=== PATIENT | male | born 1980 | race Caucasian/White ===

== ENCOUNTER → 2020-06-18 | Outpatient (CLI) | payer OTHER ==
--- NOTE | 2020-06-18 08:12 | REP ---
INDICATION: ABN RESULTS TO LIVER FUNCTION STUDIES COMPARISON: None. TECHNIQUE: Real time de dios scale ultrasound examination using curved array transducer. FINDINGS: Liver is hyperechoic suggesting fatty infiltration and mildly enlarged measuring 21 cm in craniocaudal length. No focal hepatic lesion identified. Pancreas is incompletely evaluated due to interposed bowel gas but without obvious abnormality. The gallbladder is normal and without gallstones, wall thickening, or pericholecystic fluid. No biliary ductal dilatation is appreciated and the common bile duct measures 5.0 mm diameter. Right kidney is normal in reniform shape without hydronephrosis and measures 11.7 x 5.8 x 5.3 cm. No ascites in the visualized right upper quadrant. IMPRESSION: Hepatomegaly and hepatosteatosis. <Electronically signed by Bijan Vences > 06/18/20 0413
== END ==
LOC: M RAD 06:45
PROVIDERS: ATTEND Nurse Practitioner Family
DX: R94.5 Abnormal results of liver function studies (principal)

== ENCOUNTER 2021-01-12 20:35 | Inpatient (IN) | payer OTHER ==
[~2021-01-12] VITALS: Ht 177.8 cm; Wt 106.9 kg
[2021-01-12] MEDS: LEVEMIR (INSULIN DETEMIR) 1 UNITS/0.01ML SC SCH (01:15)
[2021-01-12] MEDS ORDERED: CALC600C3 PO (20:59)
[2021-01-12] MEDS ORDERED: SUMA6KIT (20:59)
[2021-01-12] MEDS ORDERED: LISI10TA22 PO (20:59)
[2021-01-12] MEDS ORDERED: PRAZ2CAP PO (20:59)
[2021-01-12] MEDS ORDERED: PROP60TA18 PO (20:59)
[2021-01-12] MEDS ORDERED: LISI10TA15 PO (20:59)
[2021-01-12] MEDS ORDERED: PARO40TA3 PO (20:59)
[2021-01-12] MEDS ORDERED: ARIP1TAB6 PO (20:59)
[2021-01-12] MEDS ORDERED: FISH1000 PO (20:59)
[2021-01-12] MEDS ORDERED: OMEP10CASR PO (20:59)
[2021-01-12 21:27] LABS: VENOUS BASE EXCESS 0.4 (-2.0-2.0); VENOUS HCO3 26.7 MEQ/L (23.0-27.0); VENOUS PARTIAL PRESSURE O2 31.5 mmHg (30.0-50.0); VENOUS PH 7.354 UNITS (7.330-7.430); VENOUS STANDARD HCO3 23.8 MEQ/L; VENOUS TOTAL CO2 28.2 MEQ/L (24.0-28.0)
[2021-01-12 21:35] LABS: BASO # 0.1 10^3/uL (0.0-0.2); BASO % 0.8 % (0.0-1.0); EOS # 0.2 10^3/uL (0.0-0.5); EOS % 2.3 % (0.0-3.0); HEMATOCRIT 43.8 % (42.0-52.0); HEMOGLOBIN 15.1 g/dl (13.5-17.5); LYMPH # 3.6 10^3/uL (1.5-5.0); LYMPH % 46.2 % (24.0-44.0); MEAN CORPUSCULAR HEMOGLOBIN 29.3 pg (27.0-33.0); MEAN CORPUSCULAR HGB CONC 34.5 g/dl (32.0-36.5); MONO # 0.4 10^3/uL (0.0-0.8); MONO % 5.6 % (2.0-8.0); NEUTROPHILS # 3.4 10^3/uL (1.5-8.5); NEUTROPHILS % 44.4 % (36.0-66.0); PLATELET COUNT, AUTOMATED 218 10^3/uL (150-450); RED BLOOD COUNT 5.15 10^6/uL (4.30-6.10); WHITE BLOOD COUNT 7.7 10^3/uL (4.0-10.0)
[2021-01-12 21:48] LABS: HEMOGLOBIN A1c 10.7 %
[2021-01-12 22:04] LABS: OSMOLALITY SERUM 301 MOSM/KG (275-295)
[2021-01-12 22:10] LABS: ACETONE/KETONE 1.08 MG/DL (<2.81); ALT/SGPT 229 U/L (12-78); BILIRUBIN,DIRECT 0.4 MG/DL (0.0-0.2); BILIRUBIN,TOTAL 1.9 MG/DL (0.2-1.0); BLOOD UREA NITROGEN 13 MG/DL (7-18); CALCIUM LEVEL 9.5 MG/DL (8.5-10.1); CARBON DIOXIDE LEVEL 28 MEQ/L (21-32); CHLORIDE LEVEL 99 MEQ/L (98-107); GLOMERULAR FILTRATION RATE > 60.0 (>60); GLUCOSE, FASTING 430 MG/DL (70-100); LIPASE 293 U/L (73-393); POTASSIUM SERUM 4.1 MEQ/L (3.5-5.1); SODIUM LEVEL 132 MEQ/L (136-145); TOTAL PROTEIN 7.7 GM/DL (6.4-8.2)
[2021-01-12] MEDS ORDERED: HumuLIN R (REGULAR) INSULIN (NovoLIN R) **100U/ML** PER UNIT IV ONE (23:20)
[2021-01-12 23:24] LABS: RSV AMPLIFICATION NEGATIVE (NEGATIVE)
--- NOTE | 2021-01-12 23:52 | HPEPDOC ---
[facility] Medical History & Physical Date of Admission Jan 12, 2021 Date of Service: Jan 12, 2021 History and Physical CHIEF COMPLAINT: Blood sugar measurements at home 500 HISTORY OF PRESENT ILLNESS: 40-year-old male history of hypertension, GERD, depression, PTSD were personally wasn't feeling very well at home and use his 's glucometer to measure his blood glucose and it was found to be around 500 which prompted him to come to the hospital. He states he feels generally more tired than usual he also complains of increased thirst and increased urination over the past several weeks he otherwise feels well denies any chest pain or shortness of breath denies fevers or chills denies any abdominal pain denies any nausea or vomiting. In the emergency department patient's sugar were initially elevated at 430 but improved to 260. He is found to have transaminitis he doesn't know why his liver is abnormal. His A1c was obtained at 10.7. Patient will be admitted for observation for new onset diabetes for diabetic education and initiation of insulin therapy as well as workup of transaminitis. 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 REVIEW OF SYSTEMS: 10 point review of systems complete all negative otherwise stated in HPI HOME MEDICATIONS: Please see below. PHYSICAL EXAMINATION: Constitutional: Awake and alert, in no apparent distress ENT: Sclera are clear. Mucosa is moist. Respiratory: Lungs CTA bilaterally. No respiratory distress. Cardiovascular: RRR S1 and S2 are normal, no murmur Gastrointestinal: Abdomen is soft, non distended, non tender, BS present. Musculoskeletal: No lower extremity edema. Neurologic: No focal neurological deficit. Mental Status: A&O x3, normal affect LABORATORY DATA: See below. IMAGING: See chart MICROBIOLOGY: Please see below. ASSESSMENT New onset diabetes Transaminitis PLAN Admit to med/surge unit initiate insulin therapy. Start with Levemir 10 units daily. Insulin sliding scale. Hyperglycemic precautions. Carbohydrate consistent diet. Diabetic teaching. A1C 10.7%. We'll hold off on starting metformin given liver function. Follow-up liver ultrasound and hepatitis panel. DVT prophylaxis with Lovenox. Will need good outpatient follow-up and titration of insulin and starting of oral anti-hyperglycemics. [facility] Vital Signs Vital Signs Date Time Temp Pulse Resp B/P (MAP) Pulse Ox O2 Delivery O2 Flow Rate FiO2 01/12/21 21:57 83 19 147/96 (113) 97 Room Air 01/12/21 20:37 98.4 Laboratory Data Labs 24H Laboratory Tests 2 01/12/21 20:48: Bedside Glucose (Misc Panel) 410H 01/12/21 21:10: Immature Granulocyte % (Auto) 0.7, Neutrophils (%) (Auto) 44.4, Lymphocytes (%) (Auto) 46.2H, Monocytes (%) (Auto) 5.6, Eosinophils (%) (Auto) 2.3, Basophils (%) (Auto) 0.8, Neutrophils # (Auto) 3.4, Lymphocytes # (Auto) 3.6, Monocytes # (Auto) 0.4, Eosinophils # (Auto) 0.2, Basophils # (Auto) 0.1, Nucleated Red Blood Cells % (auto) 0.0, Urine Color YELLOW, Urine Appearance CLEAR, Urine pH 6.0, Urine Specific Stephen[place] 1.035, Urine Protein NEGATIVE, Urine Glucose (UA) 3+H, Urine Ketones NEGATIVE, Urine Blood NEGATIVE, Urine Nitrite NEGATIVE, Urine Bilirubin NEGATIVE, Urine Urobilinogen 2.0H, Urine Leukocyte Esterase NEGATIVE, Urine WBC (Auto) 0, Urine RBC (Auto) 0, Urine Hyaline Casts (Auto) 0, Urine Bacteria (Auto) NEGATIVE, Urine Squamous Epithelial Cells 0, Urine Sperm (Auto) , Blood Gas Bicarbonate Standard 23.8, Venous Blood pH 7.354, Venous Blood Partial Pressure CO2 49.0, Venous Blood Partial Pressure O2 31.5, Venous Blood Total Carbon Dioxide 28.2H, Venous Blood HCO3 26.7, Venous Blood Oxygen Saturation 60.0, Venous Blood Base Excess 0.4, Anion Gap 5L, Glomerular Filtration Rate > 60.0, Estimated Mean Plasma Glucose 260H, Hemoglobin A1c 10.7, Osmolality 301H, Calcium Level 9.5, Total Bilirubin 1.9H, Direct Bilirubin 0.4H, Aspartate Amino Transf (AST/SGOT) 182H, Alanine Aminotransferase (ALT/SGPT) 229H, Alkaline Phosphatase 136H, Total Protein 7.7, Albumin 4.0, Albumin/Globulin Ratio 1.1, Lipase 293, B-Hydroxybutyrate 1.08 01/12/21 22:33: Coronavirus (COVID-19)(PCR) NEGATIVE, Influenza Type A (RT-PCR) NEGATIVE, Influenza Type B (RT-PCR) NEGATIVE, Respiratory Syncytial Virus (PCR) NEGATIVE 01/12/21 23:04: Bedside Glucose (Misc Panel) 442H CBC/BMP Laboratory Tests 01/12/21 21:10 Home Medications Scheduled Aripiprazole (Aripiprazole) 10 Mg Tablet, 5 MG PO QHS Calcium Carbonate/Vitamin D3 (Calcium 600-Vit D3 400 Tablet) 1 Each Tablet, 1 TAB PO DAILY Calcium Polycarbophil (Fibercon) 625 Mg Tablet, 1,250 MG PO DAILY Lisinopril/Hydrochlorothiazide (Lisinopril-Hctz 10-12.5 mg Tab) 1 Each Tablet, 1 TAB PO DAILY [place]-3 Fatty Acids/Fish Oil (Fish Oil 1,000 mg Capsule) 1 Each Capsule, 1,000 MG PO BID Omeprazole (Omeprazole) 20 Mg Capsule.dr, 20 MG PO DAILY Paroxetine HCl (Paroxetine) 40 Mg Tablet, 60 MG PO QHS Prazosin Hcl (Prazosin HCl) 1 Mg Capsule, 4 MG PO QHS Propranolol HCl (Propranolol HCl ER) 60 Mg Cap.sa.24h, 60 MG PO QHS Rosuvastatin Calcium (Crestor) 40 Mg Tablet, 40 MG PO QHS Scheduled PRN Aspirin/Acetaminophen/Caffeine (Excedrin Migraine Caplet) 1 Each Tablet, 2 TAB PO Q4H PRN for MIGRAINE Buspirone HCl (Buspirone HCl) 10 Mg Tablet, 10 MG PO BID PRN for ANXIETY Sumatriptan (Sumatriptan) 5 Mg Glen, 1 SPRAY NA ASDIRECTED PRN for MIGRAINE Allergies Coded Allergies: Penicillins (Verified Allergy, Intermediate, hives, 01/12/21) SAMIRA NUNEZ MD Jan 12, 2021 23:52
[2021-01-12] MEDS ORDERED: GLUCOSE 4GM CHEW TABLET PO PRN (23:55)
[2021-01-12] MEDS ORDERED: DEXTROSE 50% 50 ML SYRINGE IV PRN (23:55)
[2021-01-12] MEDS ORDERED: GLUCAGON INJ 1MG VIAL SC PRN (23:55)
[2021-01-13] MEDS ORDERED: CRES40TA PO (00:23)
[2021-01-13] MEDS ORDERED: BUSP10TA PO (00:23)
[2021-01-13] MEDS ORDERED: ARIP1TAB PO (00:23)
[2021-01-13] MEDS ORDERED: SUMA5SPR (00:23)
[2021-01-13] MEDS ORDERED: EXCETAB33 PO (00:23)
[2021-01-13] MEDS ORDERED: PRAZ1CAP PO (00:23)
[2021-01-13] MEDS ORDERED: PARO40TA3 PO (00:23)
[2021-01-13] MEDS ORDERED: LISI10TA15 PO (00:23)
[2021-01-13] MEDS ORDERED: OMEP1CAP73 PO (00:23)
[2021-01-13] MEDS ORDERED: FISH1000 PO (00:23)
[2021-01-13] MEDS ORDERED: CALC600T17 PO (00:23)
[2021-01-13] MEDS ORDERED: FIBE625T PO (00:23)
[2021-01-13] MEDS ORDERED: PROP60CA PO (00:23)
[2021-01-13] MEDS ORDERED: HOME MED LIST COMPLETE! XX SCH (00:25)
[2021-01-13] MEDS: HumaLOG INSULIN (NovoLOG) PER UNIT SC SCH ×5 (01:15→21:16)
[2021-01-13 03:08] VITALS: BP 142/94
[2021-01-13 06:00] VITALS: BP 140/93
[2021-01-13 06:25] LABS: HEMATOCRIT 39.9 % (42.0-52.0); HEMOGLOBIN 13.7 g/dl (13.5-17.5); MEAN CORPUSCULAR HEMOGLOBIN 29.1 pg (27.0-33.0); MEAN CORPUSCULAR HGB CONC 34.3 g/dl (32.0-36.5); MEAN CORPUSCULAR VOLUME 84.7 fl (80.0-96.0); PLATELET COUNT, AUTOMATED 185 10^3/uL (150-450); RED BLOOD COUNT 4.71 10^6/uL (4.30-6.10); WHITE BLOOD COUNT 6.4 10^3/uL (4.0-10.0)
[2021-01-13 06:50] LABS: ALBUMIN 3.4 GM/DL (3.2-5.2); ALT/SGPT 201 U/L (12-78); BILIRUBIN,TOTAL 1.7 MG/DL (0.2-1.0); BLOOD UREA NITROGEN 11 MG/DL (7-18); CALCIUM LEVEL 8.8 MG/DL (8.5-10.1); CARBON DIOXIDE LEVEL 25 MEQ/L (21-32); CHLORIDE LEVEL 106 MEQ/L (98-107); CREATININE FOR GFR 0.85 MG/DL (0.70-1.30); GLOMERULAR FILTRATION RATE > 60.0 (>60); GLUCOSE, FASTING 296 MG/DL (70-100); MAGNESIUM LEVEL 1.8 MG/DL (1.8-2.4); SODIUM LEVEL 137 MEQ/L (136-145); TOTAL PROTEIN 6.8 GM/DL (6.4-8.2)
[2021-01-13] MEDS: ENOXAPARIN 40MG/0.4ML SYRINGE (J1650 PER 10MG) SC SCH (08:20)
[2021-01-13] MEDS ORDERED: LEVEMIR (INSULIN DETEMIR) 1 UNITS/0.01ML SC SCH (09:00)
--- NOTE | 2021-01-13 09:28 | REP ---
INDICATION: Trasnaminitis. COMPARISON: Comparison sonography June 18, 2020. TECHNIQUE: Right upper quadrant sonography. FINDINGS: Scanning through the right upper quadrant of the abdomen demonstrates a normal sized, thin-walled gallbladder without evidence of stone or polyp. Common bile duct is normal measuring 0.4 cm in greatest diameter. No focal liver lesion is seen. There is increased echogenicity in the liver parenchyma consistent with fatty infiltration with the area of fat sparing adjacent to the gallbladder. Liver size is normal. Limited views of pancreas due to bowel gas. No pancreatic abnormality is observed. No right renal abnormality is seen. There is no evidence of ascites. The right kidney measures 11.4 x 6.4 x 4.3 cm. IMPRESSION: Evidence of fatty infiltration of the liver, otherwise negative right upper quadrant sonography. <Electronically signed by Jl Garcia > 01/13/21 [id number]
[2021-01-13 09:57] LABS: HEPATITIS A ANTIBODY IGM NEGATIVE (NEGATIVE); HEPATITIS B CORE ANTIBODY IGM NEGATIVE (NEGATIVE); HEPATITIS B SURFACE ANTIGEN NEGATIVE (NEGATIVE)
[2021-01-13] MEDS: SITagliptin 50 MG TAB (JANUVIA) PO SCH (13:49)
[2021-01-13 14:00] VITALS: BP 170/94
--- NOTE | 2021-01-13 15:48 | IPNPDOC ---
Subjective Date Seen The patient was seen on 01/13/21. Subjective Chief Complaint/HPI Patient seen and examined at bedside this morning. He reports feeling better however since his glucose levels are slightly better controlled. He denied headaches, palpitations, chest pain, abdominal pain, nausea, vomiting, problem with urination or bowel movements. Objective Physical Examination Other physical findings General: Lying in bed, no acute distress, obese Head/Neck/Throat: Trachea midline, mucous membranes moist Eyes: Sclera anicteric, PERRLA Thorax: Normal respiratory effort on room air, lungs clear to auscultation bilaterally, no wheezes/rales/rhonchi Cardiovascular: Normal rate, regular rhythm, normal S1, S2; no S3, S4, rubs/gallops/murmurs Abdomen: Bowel sounds present, soft/nontender/nondistended Genitourinary: No CVA tenderness, no Dolan in place Musculoskeletal: Moving all extremities, no edema Skin: Warm, dry Neurologic: AAOx3, speech fluent and goal-directed, no focal deficits, grossly intact Assessment /Plan Assessment #Diabetes -New onset diabetes. Hemoglobin A1c is 10.7%. He was started on Levemir and sliding scale. We will increase his Levemir to 10 units twice daily and initiate Januvia during hospitalization considering patient is being set up for possible discharge in the a.m. if blood glucose levels are better controlled. -Education provided #Fatty liver -Patient likely has metabolic syndrome (hypertensive, increased blood glucose, history of triglycerides, and obesity). He was explained about appropriate follow-up with his primary care physician and about lifestyle modifications. #Transaminitis -Hepatitis panel is negative. Liver ultrasound showed fatty liver, otherwise no acute pathology. -Hold statin therapy for now #Hypertension -Continue lisinopril/hydrochlorothiazide, and propranolol #Hyperlipidemia -We will hold rosuvastatin in setting of his transaminitis #Migraines -Continue with as needed Excedrin and sumatriptan. -Propranolol should help as prophylaxis as well. #Dvt ppx -Lovenox Plan/VTE VTE Prophylaxis Ordered?: Yes VS, I&O, 24H, Fishbone Vital Signs/I&O Vital Signs Date Time Temp Pulse Resp B/P (MAP) Pulse Ox O2 Delivery O2 Flow Rate FiO2 01/13/21 14:00 98.7 76 17 170/94 (119) 93 Room Air I&O- Last 24 Hours up to 6 AM 01/13/21 06:00 Intake Total 150 ml Output Total 0 ml Balance 150 ml Laboratory Data 24H LABS Laboratory Tests 2 01/12/21 20:48: Bedside Glucose (Misc Panel) 410H 01/12/21 21:10: Immature Granulocyte % (Auto) 0.7, Neutrophils (%) (Auto) 44.4, Lymphocytes (%) (Auto) 46.2H, Monocytes (%) (Auto) 5.6, Eosinophils (%) (Auto) 2.3, Basophils (%) (Auto) 0.8, Neutrophils # (Auto) 3.4, Lymphocytes # (Auto) 3.6, Monocytes # (Auto) 0.4, Eosinophils # (Auto) 0.2, Basophils # (Auto) 0.1, Nucleated Red Blood Cells % (auto) 0.0, Urine Color YELLOW, Urine Appearance CLEAR, Urine pH 6.0, Urine Specific Boomer 1.035, Urine Protein NEGATIVE, Urine Glucose (UA) 3+H, Urine Ketones NEGATIVE, Urine Blood NEGATIVE, Urine Nitrite NEGATIVE, Urine Bilirubin NEGATIVE, Urine Urobilinogen 2.0H, Urine Leukocyte Esterase NEGATIVE, Urine WBC (Auto) 0, Urine RBC (Auto) 0, Urine Hyaline Casts (Auto) 0, Urine Bacteria (Auto) NEGATIVE, Urine Squamous Epithelial Cells 0, Urine Sperm (Auto) , Blood Gas Bicarbonate Standard 23.8, Venous Blood pH 7.354, Venous Blood Partial Pressure CO2 49.0, Venous Blood Partial Pressure O2 31.5, Venous Blood Total Carbon Dioxide 28.2H, Venous Blood HCO3 26.7, Venous Blood Oxygen Saturation 60.0, Venous Blood Base Excess 0.4, Anion Gap 5L, Glomerular Filtration Rate > 60.0, Estimated Mean Plasma Glucose 260H, Hemoglobin A1c 10.7, Osmolality 301H, Calcium Level 9.5, Total Bilirubin 1.9H, Direct Bilirubin 0.4H, Aspartate Amino Transf (AST/SGOT) 182H, Alanine Aminotransferase (ALT/SGPT) 229H, Alkaline Phosphatase 136H, Total Protein 7.7, Albumin 4.0, Albumin/Globulin Ratio 1.1, Lipase 293, B-Hydroxybutyrate 1.08 01/12/21 22:33: Coronavirus (COVID-19)(PCR) NEGATIVE, Influenza Type A (RT-PCR) NEGATIVE, Influenza Type B (RT-PCR) NEGATIVE, Respiratory Syncytial Virus (PCR) NEGATIVE 01/12/21 23:04: Bedside Glucose (Misc Panel) 442H 01/13/21 01:16: Bedside Glucose (Misc Panel) 320H 01/13/21 05:43: Nucleated Red Blood Cells % (auto) 0.0, Anion Gap 6L, Glomerular Filtration Rate > 60.0, Calcium Level 8.8, Magnesium Level 1.8, Total Bilirubin 1.7H, Aspartate Amino Transf (AST/SGOT) 143H, Alanine Aminotransferase (ALT/SGPT) 201H, Alkaline Phosphatase 122H, Total Protein 6.8, Albumin 3.4, Albumin/Globulin Ratio 1.0, Hepatitis A IgM Antibody NEGATIVE, Hepatitis B Surface Antigen NEGATIVE, Hepatitis B Core IgM Antibody NEGATIVE, Hepatitis C Antibody Index 0.0 01/13/21 11:32: Bedside Glucose (Misc Panel) 305H CBC/BMP Laboratory Tests 01/12/21 21:10 01/13/21 05:43 ALEJANDRO WARREN M.D. Jan 13, 2021 15:48
[2021-01-13] MEDS: EXCEDRIN MIGRAINE TABLET PO PRN (17:49)
[2021-01-13] MEDS ORDERED: busPIRone 10 MG TAB PO PRN (19:00)
[2021-01-13] MEDS ORDERED: PILL CUTTER 1 EACH XX PRN (19:10)
[2021-01-13] MEDS ORDERED: SUMAtriptan SUCCINATE 25 MG TAB PO ONE (20:00)
[2021-01-13] MEDS ORDERED: ARIPiprazole 10 MG TAB PO SCH (21:00)
[2021-01-13] MEDS: PROPRANOLOL 60 MG LA CAP PO SCH (21:15)
[2021-01-13] MEDS: PRAZOSIN 1 MG CAP PO SCH (21:16)
[2021-01-13] MEDS: LEVEMIR (INSULIN DETEMIR) 1 UNITS/0.01ML SC SCH (21:17)
[2021-01-13 22:00] VITALS: BP 154/86
[2021-01-14 06:00] VITALS: BP 125/79
[2021-01-14 06:14] LABS: MEAN CORPUSCULAR HEMOGLOBIN 29.1 pg (27.0-33.0); MEAN CORPUSCULAR HGB CONC 34.1 g/dl (32.0-36.5); MEAN CORPUSCULAR VOLUME 85.2 fl (80.0-96.0); PLATELET COUNT, AUTOMATED 207 10^3/uL (150-450); RED BLOOD COUNT 4.81 10^6/uL (4.30-6.10); WHITE BLOOD COUNT 7.6 10^3/uL (4.0-10.0)
[2021-01-14 06:40] LABS: ALBUMIN 3.4 GM/DL (3.2-5.2); ALT/SGPT 208 U/L (12-78); BILIRUBIN,TOTAL 1.5 MG/DL (0.2-1.0); BLOOD UREA NITROGEN 12 MG/DL (7-18); CALCIUM LEVEL 9.5 MG/DL (8.5-10.1); CARBON DIOXIDE LEVEL 25 MEQ/L (21-32); CHLORIDE LEVEL 106 MEQ/L (98-107); CREATININE FOR GFR 0.88 MG/DL (0.70-1.30); GLOMERULAR FILTRATION RATE > 60.0 (>60); GLUCOSE, FASTING 276 MG/DL (70-100); MAGNESIUM LEVEL 1.8 MG/DL (1.8-2.4); PHOSPHORUS LEVEL 3.6 MG/DL (2.5-4.9); POTASSIUM SERUM 4.2 MEQ/L (3.5-5.1); SODIUM LEVEL 137 MEQ/L (136-145); TOTAL PROTEIN 6.8 GM/DL (6.4-8.2)
[2021-01-14] MEDS ORDERED: LEVEMIR (INSULIN DETEMIR) 1 UNITS/0.01ML SC SCH ×3 (09:00→21:00)
[2021-01-14] MEDS ORDERED: amLODIPine 5 MG TAB PO SCH (09:00)
[2021-01-14] MEDS: HumaLOG INSULIN (NovoLOG) PER UNIT SC SCH ×5 (09:19→20:49)
[2021-01-14] MEDS: hydroCHLOROthiazide 12.5 MG CAPSULE PO SCH (09:20)
[2021-01-14] MEDS: SITagliptin 50 MG TAB (JANUVIA) PO SCH (09:20)
[2021-01-14] MEDS: PARoxetine 20MG TABLET PO SCH (09:21)
[2021-01-14] MEDS: OMEPRAZOLE 20 MG CAP PO SCH (09:21)
[2021-01-14] MEDS: ENOXAPARIN 40MG/0.4ML SYRINGE (J1650 PER 10MG) SC SCH (09:22)
--- NOTE | 2021-01-14 13:10 | IPNPDOC ---
Subjective Date Seen The patient was seen on 01/14/21. Subjective Chief Complaint/HPI Patient was seen and examined at bedside this morning. He had no new complaints. He was explained that despite increasing his insulin regimen his blood glucose remains controlled. He denies chest pain, abdominal pain, nausea, vomiting, problems with urination or bowel movements. Objective Physical Examination Other physical findings General: Lying in bed, no acute distress, obese Head/Neck/Throat: Trachea midline, mucous membranes moist Eyes: Sclera anicteric, PERRLA Thorax: Normal respiratory effort on room air, lungs clear to auscultation bilaterally, no wheezes/rales/rhonchi Cardiovascular: Normal rate, regular rhythm, normal S1, S2; no S3, S4, rubs/gallops/murmurs Abdomen: Bowel sounds present, soft/nontender/nondistended Genitourinary: No CVA tenderness, no Dolan in place Musculoskeletal: Moving all extremities, no edema Skin: Warm, dry Neurologic: AAOx3, speech fluent and goal-directed, no focal deficits, grossly intact Assessment /Plan Assessment #Diabetes -New onset diabetes. Hemoglobin A1c is 10.7%. Despite increasing basal regimen and sliding scale patient's blood glucose remains uncontrolled therefore he is high risk for readmission. We will add prandial regimen based on his 24-hour requirements from his sliding scale. -Diabetes education provided including how to administer insulin, he reports his is also diabetic and will be able to help with his. #Fatty liver -Patient likely has metabolic syndrome (hypertensive, increased blood glucose, history of triglycerides, and obesity). He was explained about appropriate follow-up with his primary care physician and about lifestyle modifications. #Transaminitis -Hepatitis panel is negative. Liver ultrasound showed fatty liver, otherwise no acute pathology. -Hold statin therapy for now #Hypertension -Continue lisinopril/hydrochlorothiazide, and propranolol #Hyperlipidemia -We will hold rosuvastatin in setting of his transaminitis #Migraines -Continue with as needed Excedrin and sumatriptan. -Propranolol should help as prophylaxis as well. #Dvt ppx -Lovenox Plan/VTE VTE Prophylaxis Ordered?: Yes VS, I&O, 24H, Fishbone Vital Signs/I&O Vital Signs Date Time Temp Pulse Resp B/P (MAP) Pulse Ox O2 Delivery O2 Flow Rate FiO2 01/14/21 06:00 98.3 82 17 125/79 (94) 94 Room Air I&O- Last 24 Hours up to 6 AM 01/14/21 06:00 Intake Total 1440 ml Output Total 0 ml Balance 1440 ml Laboratory Data 24H LABS Laboratory Tests 2 01/13/21 17:31: Bedside Glucose (Misc Panel) 298H 01/13/21 21:00: Bedside Glucose (Misc Panel) 324H 01/14/21 05:54: Nucleated Red Blood Cells % (auto) 0.0, Anion Gap 6L, Glomerular Filtration Rate > 60.0, Calcium Level 9.5, Phosphorus Level 3.6, Magnesium Level 1.8, Total Bilirubin 1.5H, Aspartate Amino Transf (AST/SGOT) 136H, Alanine Aminotransferase (ALT/SGPT) 208H, Alkaline Phosphatase 120H, Total Protein 6.8, Albumin 3.4, Albumin/Globulin Ratio 1.0 01/14/21 12:03: Bedside Glucose (Misc Panel) 305H CBC/BMP Laboratory Tests 01/14/21 05:54 ALEJANDRO WARREN M.D. Jan 14, 2021 13:09
[2021-01-14 14:00] VITALS: BP 135/87
[2021-01-14] MEDS: EXCEDRIN MIGRAINE TABLET PO PRN (14:38)
[2021-01-14] MEDS ORDERED: HumaLOG INSULIN (NovoLOG) PER UNIT SC SCH ×2 (17:30)
[2021-01-14] MEDS ORDERED: SUMAtriptan SUCCINATE 25 MG TAB PO PRN (19:55)
[2021-01-14] MEDS: LEVEMIR (INSULIN DETEMIR) 1 UNITS/0.01ML SC SCH (21:47)
[2021-01-14] MEDS: PRAZOSIN 1 MG CAP PO SCH (21:48)
[2021-01-14] MEDS: PROPRANOLOL 60 MG LA CAP PO SCH (21:48)
[2021-01-14 22:00] VITALS: BP 141/92
[2021-01-15 06:00] VITALS: BP 114/64
[2021-01-15 06:30] LABS: HEMATOCRIT 41.4 % (42.0-52.0); HEMOGLOBIN 14.2 g/dl (13.5-17.5); MEAN CORPUSCULAR HEMOGLOBIN 29.3 pg (27.0-33.0); MEAN CORPUSCULAR HGB CONC 34.3 g/dl (32.0-36.5); MEAN CORPUSCULAR VOLUME 85.5 fl (80.0-96.0); PLATELET COUNT, AUTOMATED 195 10^3/uL (150-450); RED BLOOD COUNT 4.84 10^6/uL (4.30-6.10); WHITE BLOOD COUNT 8.4 10^3/uL (4.0-10.0)
[2021-01-15 06:57] LABS: ALBUMIN 3.4 GM/DL (3.2-5.2); ALT/SGPT 212 U/L (12-78); BILIRUBIN,TOTAL 1.4 MG/DL (0.2-1.0); BLOOD UREA NITROGEN 12 MG/DL (7-18); CALCIUM LEVEL 9.1 MG/DL (8.5-10.1); CARBON DIOXIDE LEVEL 25 MEQ/L (21-32); CHLORIDE LEVEL 105 MEQ/L (98-107); CREATININE FOR GFR 0.87 MG/DL (0.70-1.30); GLOMERULAR FILTRATION RATE > 60.0 (>60); GLUCOSE, FASTING 171 MG/DL (70-100); MAGNESIUM LEVEL 1.6 MG/DL (1.8-2.4); PHOSPHORUS LEVEL 4.3 MG/DL (2.5-4.9); POTASSIUM SERUM 3.9 MEQ/L (3.5-5.1); SODIUM LEVEL 139 MEQ/L (136-145); TOTAL PROTEIN 6.8 GM/DL (6.4-8.2)
[2021-01-15] MEDS: OMEPRAZOLE 20 MG CAP PO SCH (09:31)
[2021-01-15] MEDS: PARoxetine 20MG TABLET PO SCH (09:31)
[2021-01-15] MEDS: hydroCHLOROthiazide 12.5 MG CAPSULE PO SCH (09:31)
[2021-01-15] MEDS: LEVEMIR (INSULIN DETEMIR) 1 UNITS/0.01ML SC SCH ×2 (09:32→20:43)
[2021-01-15] MEDS: HumaLOG INSULIN (NovoLOG) PER UNIT SC SCH ×7 (09:32→20:44)
[2021-01-15] MEDS: ENOXAPARIN 40MG/0.4ML SYRINGE (J1650 PER 10MG) SC SCH (09:33)
[2021-01-15 14:00] VITALS: BP 111/63
--- NOTE | 2021-01-15 17:19 | IPNPDOC ---
Subjective Date Seen The patient was seen on 01/15/21. Subjective Chief Complaint/HPI Patient seen and examined at bedside this morning. He had no new complaints. He reports feeling well with is improving glucose levels. He denied chest pain, shortness of breath, abdominal pain, nausea, vomiting, problems with urination and bowel movements. Objective Physical Examination Other physical findings General: Lying in bed, no acute distress Head/Neck/Throat: Trachea midline, mucous membranes moist Eyes: Sclera anicteric, PERRLA Thorax: Normal respiratory effort on room air, lungs clear to auscultation bilaterally, no wheezes/rales/rhonchi Cardiovascular: Normal rate, regular rhythm, normal S1, S2; no S3, S4, rubs/gallops/murmurs Abdomen: Bowel sounds present, soft/nontender/nondistended Genitourinary: No CVA tenderness, no Dolan in place Musculoskeletal: Moving all extremities, no edema Skin: Warm, dry Neurologic: AAOx3, speech fluent and goal-directed, no focal deficits, grossly intact Assessment /Plan Assessment #Diabetes -New onset diabetes. Hemoglobin A1c is 10.7%. -Improving blood glucose levels. -Diabetes education provided including how to administer insulin, he reports his is also diabetic and will be able to help with his. #Fatty liver -Patient likely has metabolic syndrome (hypertensive, increased blood glucose, history of triglycerides, and obesity). He was explained about appropriate follow-up with his primary care physician and about lifestyle modifications. #Transaminitis -Hepatitis panel is negative. Liver ultrasound showed fatty liver, otherwise no acute pathology. -Hold statin therapy for now #Hypertension -Continue lisinopril/hydrochlorothiazide, and propranolol #Hyperlipidemia -We will hold rosuvastatin in setting of his transaminitis #Migraines -Continue with as needed Excedrin and sumatriptan. -Propranolol should help as prophylaxis as well. #Dvt ppx -Lovenox Disposition: Patient is ready for discharge today, however [facility] is unable to provide his medications and he does not wish to fill down by another pharmacy therefore he will be kept here tonight and hopefully his prescriptions can be filled tomorrow. Plan/VTE VTE Prophylaxis Ordered?: Yes VS, I&O, 24H, Fishbone Vital Signs/I&O Vital Signs Date Time Temp Pulse Resp B/P (MAP) Pulse Ox O2 Delivery O2 Flow Rate FiO2 01/15/21 14:00 97.8 72 18 111/63 (79) 96 Room Air I&O- Last 24 Hours up to 6 AM 01/15/21 06:00 Intake Total 1660 ml Output Total 0 ml Balance 1660 ml Laboratory Data 24H LABS Laboratory Tests 2 01/14/21 18:36: Bedside Glucose (Misc Panel) 232H 01/14/21 20:38: Bedside Glucose (Misc Panel) 240H 01/15/21 06:12: Nucleated Red Blood Cells % (auto) 0.0, Anion Gap 9, Glomerular Filtration Rate > 60.0, Calcium Level 9.1, Phosphorus Level 4.3, Magnesium Level 1.6L, Total Bilirubin 1.4H, Aspartate Amino Transf (AST/SGOT) 166H, Alanine Aminotransferase (ALT/SGPT) 212H, Alkaline Phosphatase 115, Total Protein 6.8, Albumin 3.4, Albumin/Globulin Ratio 1.0 01/15/21 09:37: Bedside Glucose (Misc Panel) 317H 01/15/21 12:23: Bedside Glucose (Misc Panel) 209H 01/15/21 17:13: Bedside Glucose (Misc Panel) 152H CBC/BMP Laboratory Tests 01/15/21 06:12 ALEJANDRO WARREN M.D. Jan 15, 2021 17:18
[2021-01-15] MEDS: PROPRANOLOL 60 MG LA CAP PO SCH (20:44)
[2021-01-15] MEDS: PRAZOSIN 1 MG CAP PO SCH (20:44)
[2021-01-16 06:00] VITALS: BP 111/65
[2021-01-16] MEDS: OMEPRAZOLE 20 MG CAP PO SCH (09:33)
[2021-01-16] MEDS: hydroCHLOROthiazide 12.5 MG CAPSULE PO SCH (09:33)
[2021-01-16] MEDS: HumaLOG INSULIN (NovoLOG) PER UNIT SC SCH ×6 (09:34→17:23)
[2021-01-16] MEDS: LEVEMIR (INSULIN DETEMIR) 1 UNITS/0.01ML SC SCH (09:34)
[2021-01-16 09:35] VITALS: BP 118/70
[2021-01-16] MEDS: ENOXAPARIN 40MG/0.4ML SYRINGE (J1650 PER 10MG) SC SCH (09:35)
[2021-01-16] MEDS: PARoxetine 20MG TABLET PO SCH (09:37)
[2021-01-16] MEDS ORDERED: INSUDET SC ×2 (14:37)
[2021-01-16] MEDS ORDERED: INSUHUMDS SC (14:37)
--- NOTE | 2021-01-16 21:06 | DS.PDOC ---
Discharge Summary General Date of Admission Jan 12, 2021 at 20:36 Date of Discharge 01/16/21 Discharge Summary DISCHARGE DIAGNOSES: 1. New onset diabetes 2. Metabolic syndrome 3. Fatty liver 4. Transaminitis COMPLICATIONS/CHIEF COMPLAINT: Diabetes Mellitus, New Onset Hyperglycemia. HOSPITAL COURSE: Mr. Romero, is a 40-year-old male with a past medical history of hypertension, GERD, depression, PTSD who presented to [facility] on 01/12/2021 with complaints of elevated blood glucose. He reported he checked his blood glucose at home with his 's glucometer and it was around 500. This prompted him to come to the emergency room department for further evaluation and treatment. He was noted to have a hemoglobin A1c of 10.7% and he was diagnosed with new onset diabetes. He was started on insulin including a basal and prandial regimen. Was educated about diabetes and how to appropriately measure his blood glucose levels. He was also educated about measuring his blood glucose levels to ensure that he was not hypoglycemic before giving himself insulin. He verbalized understanding and reported that since his was diabetic it would not be difficult for him to administer himself insulin. He was also noted to have transaminitis. This was evaluated by a liver ultrasound that showed a fatty liver. Considering that he had a history of obesity, hypertension, hyperlipidemia, and now diabetes there is concerns for metabolic syndrome. He was educated about lifestyle modifications. In regards to his transaminitis, he was asked to hold his rosuvastatin until follow-up with his primary care physician. At the time of discharge his transaminitis was improving and he was asked to have repeat blood work done with his primary care physician to ensure this was resolving. Should be noted that his abdomen was benign throughout hospitalization. He was also encouraged to obtain all copies of his imaging to ensure appropriate follow-up was done for findings. Discharge was delayed due to patient needing to have his prescriptions filled by [facility], which were successfully filled on 01/16. DISCHARGE MEDICATIONS: Please see below. ALLERGIES: Please see below. PHYSICAL EXAMINATION ON DISCHARGE: VITAL SIGNS: Please see below. General: Lying in bed, no acute distress Head/Neck/Throat: Trachea midline, mucous membranes moist Eyes: Sclera anicteric, PERRLA Thorax: Normal respiratory effort on room air, lungs clear to auscultation bilaterally, no wheezes/rales/rhonchi Cardiovascular: Normal rate, regular rhythm, normal S1, S2; no S3, S4, rubs/gallops/murmurs Abdomen: Bowel sounds present, soft/nontender/nondistended Genitourinary: No CVA tenderness, no Dolan in place Musculoskeletal: Moving all extremities, no edema Skin: Warm, dry Neurologic: AAOx3, speech fluent and goal-directed, no focal deficits, grossly intact LABORATORY DATA: Please see below. IMAGING: LIVER US FINDINGS: Scanning through the right upper quadrant of the abdomen demonstrates a normal sized, thin-walled gallbladder without evidence of stone or polyp. Common bile duct is normal measuring 0.4 cm in greatest diameter. No focal liver lesion is seen. There is increased echogenicity in the liver parenchyma consistent with fatty infiltration with the area of fat sparing adjacent to the gallbladder. Liver size is normal. Limited views of pancreas due to bowel gas. No pancreatic abnormality is observed. No right renal abnormality is seen. There is no evidence of ascites. The right kidney measures 11.4 x 6.4 x 4.3 cm. IMPRESSION: Evidence of fatty infiltration of the liver, otherwise negative right upper quadrant sonography. PROGNOSIS: Good ACTIVITY: As tolerated. DIET: Diabetic diet DISPOSITION: 01 Home, Self-Care. ITEMS TO FOLLOWUP ON ON OUTPATIENT: 1. Follow-up with primary care physician within 5 to 7 days DISCHARGE CONDITION: Stable TIME SPENT ON DISCHARGE: 30 minutes. Vital Signs/I&Os Vital Signs Date Time Temp Pulse Resp B/P (MAP) Pulse Ox O2 Delivery O2 Flow Rate FiO2 01/16/21 09:35 118/70 01/16/21 06:00 97.8 77 15 94 Room Air I&O- Last 24 Hours up to 6 AM 01/16/21 06:00 Intake Total 2160 ml Balance 2160 ml Laboratory Data Labs 24H Laboratory Tests 2 01/16/21 06:06: Bedside Glucose (Misc Panel) 187H 01/16/21 12:06: Bedside Glucose (Misc Panel) 244H 01/16/21 17:16: Bedside Glucose (Misc Panel) 207H FSBS Laboratory Tests Test 01/16/21 06:06 01/16/21 12:06 01/16/21 17:16 Range/Units Bedside Glucose (Misc Panel) 187 244 207 70-105 MG/DL Discharge Medications Scheduled Aripiprazole (Aripiprazole) 10 Mg Tablet, 5 MG PO QHS, (Reported) Calcium Carbonate/Vitamin D3 (Calcium 600-Vit D3 400 Tablet) 1 Each Tablet, 1 TAB PO DAILY, (Reported) Calcium Polycarbophil (Fibercon) 625 Mg Tablet, 1,250 MG PO DAILY, (Reported) Insulin Detemir (Levemir) 100 Unit/1 Ml Vial, 20 UNITS SC DAILY Insulin Detemir (Levemir) 100 Unit/1 Ml Vial, 30 UNITS SC QHS Insulin Human Lispro (Humalog) 100 Unit/1 Ml Vial, 20 UNITS SC AC Lisinopril/Hydrochlorothiazide (Lisinopril-Hctz 10-12.5 mg Tab) 1 Each Tablet, 1 TAB PO DAILY, (Reported) [place]pherson-3 Fatty Acids/Fish Oil (Fish Oil 1,000 mg Capsule) 1 Each Capsule, 1,000 MG PO BID, (Reported) Omeprazole (Omeprazole) 20 Mg Capsule.dr, 20 MG PO DAILY, (Reported) Paroxetine HCl (Paroxetine) 40 Mg Tablet, 60 MG PO QHS, (Reported) Prazosin Hcl (Prazosin HCl) 1 Mg Capsule, 4 MG PO QHS, (Reported) Propranolol HCl (Propranolol HCl ER) 60 Mg Cap.sa.24h, 60 MG PO QHS, (Reported) Scheduled PRN Aspirin/Acetaminophen/Caffeine (Excedrin Migraine Caplet) 1 Each Tablet, 2 TAB PO Q4H PRN for MIGRAINE, (Reported) Buspirone HCl (Buspirone HCl) 10 Mg Tablet, 10 MG PO BID PRN for ANXIETY, (Reported) Sumatriptan (Sumatriptan) 5 Mg [place], 1 SPRAY NA ASDIRECTED PRN for MIGRAINE, (Reported) Allergies Coded Allergies: Penicillins (Verified Allergy, Intermediate, hives, 01/12/21) ALEJANDRO WARREN M.D. Jan 16, 2021 21:06
== END 2021-01-16 17:43 | disposition home or self-care (01) | DRG 639 ==
LOC: M ED 20:35 → OBSVTOIN 20:36 → M ED INP 20:36 → M MS5PR 20:36 → UNDOADMOB 20:36 → M MSPAV 01-13 03:08
PROVIDERS: ADMIT Family Medicine; ATTEND Internal Medicine
DX: E11.65 Type 2 diabetes mellitus with hyperglycemia (principal); K21.9 Gastro-esophageal reflux disease without esophagitis; E78.5 Hyperlipidemia, unspecified; I10 Essential (primary) hypertension; F43.10 Post-traumatic stress disorder, unspecified; F32.9 Major depressive disorder, single episode, unspecified; K76.0 Fatty (change of) liver, not elsewhere classified; R74.01 Elevation of levels of liver transaminase levels; G43.909 Migraine, unspecified, not intractable, without status migrainosus; E88.81 Metabolic syndrome and other insulin resistance; Z90.79 Acquired absence of other genital organ(s); Z83.3 Family history of diabetes mellitus; Z20.822 Contact with and (suspected) exposure to COVID-19; Z90.49 Acquired absence of other specified parts of digestive tract; Z79.899 Other long term (current) drug therapy; Z88.0 Allergy status to penicillin

== ENCOUNTER → 2021-07-10 | Outpatient (CLI) | payer OTHER ==
[~2021-07-10] MED LIST: ARIP1TAB PO; ARIP1TAB6 PO; BUSP10TA PO; CALC600C3 PO; CALC600T17 PO; CRES40TA PO; EXCETAB33 PO; FIBE625T PO; FISH1000 PO; INSUDET SC; INSUHUMDS SC; LISI10TA22 PO; LISI10TA24 PO; OMEP10CASR PO; OMEP1CAP73 PO; PARO40TA3 PO; PRAZ1CAP PO; PRAZ2CAP PO; PROP60CA PO; PROP60TA18 PO; SUMA5SPR3; SUMA6CAR
[2021-07-10 12:23] LABS: BASO # 0.1 10^3/uL (0.0-0.2); BASO % 0.8 % (0.0-1.0); EOS # 0.1 10^3/uL (0.0-0.5); EOS % 1.9 % (0.0-3.0); HEMATOCRIT 44.6 % (42.0-52.0); HEMOGLOBIN 15.2 g/dl (13.5-17.5); LYMPH # 3.1 10^3/uL (1.5-5.0); LYMPH % 41.3 % (24.0-44.0); MEAN CORPUSCULAR HEMOGLOBIN 28.7 pg (27.0-33.0); MEAN CORPUSCULAR HGB CONC 34.1 g/dl (32.0-36.5); MEAN CORPUSCULAR VOLUME 84.2 fl (80.0-96.0); MONO # 0.6 10^3/uL (0.0-0.8); MONO % 7.3 % (2.0-8.0); NEUTROPHILS # 3.6 10^3/uL (1.5-8.5); NEUTROPHILS % 48.4 % (36.0-66.0); PLATELET COUNT, AUTOMATED 242 10^3/uL (150-450); WHITE BLOOD COUNT 7.5 10^3/uL (4.0-10.0)
[2021-07-10 12:32] LABS: INR 0.91; PROTHROMBIN TIME 12.7 SECONDS (12.7-14.5)
[2021-07-10 12:33] LABS: PARTIAL THROMBOPLASTIN TIME 26.9 SECONDS (25.9-37.0)
[2021-07-10 13:40] LABS: ALT/SGPT 87 U/L (12-78); BILIRUBIN,DIRECT 0.2 MG/DL (0.0-0.2); BILIRUBIN,TOTAL 1.6 MG/DL (0.2-1.0); BLOOD UREA NITROGEN 17 MG/DL (7-18); CREATININE FOR GFR 0.98 MG/DL (0.70-1.30); FERRITIN 92 NG/ML (26-388); GLOMERULAR FILTRATION RATE > 60.0 (>60); IRON (FE) 74 UG/DL (65-175); TOTAL IRON BINDING CAPACITY 370 UG/DL (250-450); TOTAL PROTEIN 7.5 GM/DL (6.4-8.2)
[2021-07-10 13:55] LABS: HEPATITIS B SURFACE ANTIGEN NEGATIVE (NEGATIVE)
[2021-07-10 14:24] LABS: HEPATITIS C VIRUS ABY INDEX 0.2 INDEX (<0.8)
[2021-07-14 07:11] LABS: ANA (HEP2) Negative (.); ANTI-MITOCHONDRIAL ANTIBODY <20.0 Units (0.0-20.0); HEPATITIS A IgG TOTAL Positive (Negative); HEPATITIS B CORE ANTIBODY IGG Negative (Negative); IGASUB3 52.5 mg/dL (13.4-97.9); IgA SERUM (part of Subclasses) 302 mg/dL (90-386); LIVER-KIDNEY MICROSOMAL ABY <20.1 Units (0.0-20.0); TISSUE TRANSGLUTAMINASE IgA <2 U/mL (0-3)
== END ==
LOC: M LAB 11:50
PROVIDERS: ATTEND Internal Medicine Gastroenterology
DX: R94.5 Abnormal results of liver function studies (principal); E11.9 Type 2 diabetes mellitus without complications; E78.5 Hyperlipidemia, unspecified; K76.0 Fatty (change of) liver, not elsewhere classified

== ENCOUNTER 2021-07-20 11:23 | Day surgery (SDC) | payer OTHER ==
[~2021-07-20] VITALS: Ht 177.8 cm; Wt 110.2 kg
[~2021-07-20 11:23] MED LIST changes: +FLUO-96 PO; +LANTINJ4 SC; +LIDOCAINE 2% 100MG/5ML SDV (FOR ANES.) As Ordered ONE; +NS 1,000 ML IV ONE
[2021-07-20] MEDS ORDERED: propofoL 500 MG/50 ML VIAL As Ordered ONE (12:51)
[2021-07-20] MEDS ORDERED: fentaNYL 100 MCG/2 ML INJECTION As Ordered ONE (14:17)
[2021-07-20 15:08] VITALS: BP 145/89
== END 2021-07-20 15:22 | disposition home or self-care (01) ==
LOC: M OPP 11:23
PROVIDERS: ATTEND Internal Medicine Gastroenterology
DX: K57.30 Diverticulosis of large intestine without perforation or abscess without bleeding (principal); K64.8 Other hemorrhoids; K92.1 Melena; K21.00 Gastro-esophageal reflux disease with esophagitis, without bleeding; K22.89 Other specified disease of esophagus; K29.70 Gastritis, unspecified, without bleeding; R12 Heartburn; K74.60 Unspecified cirrhosis of liver; Z80.0 Family history of malignant neoplasm of digestive organs; E11.9 Type 2 diabetes mellitus without complications; Z79.4 Long term (current) use of insulin; Z79.899 Other long term (current) drug therapy
CPT/HCPCS: 43239; 45378; 87428; 88305; J3010

== ENCOUNTER → 2021-10-11 | Outpatient (CLI) | payer OTHER ==
[~2021-10-11] MED LIST changes: +EXCETAB32 PO; -EXCETAB33 PO; -LIDOCAINE 2% 100MG/5ML SDV (FOR ANES.) As Ordered ONE; -NS 1,000 ML IV ONE; +PANT40TA29 PO
== END ==
LOC: M LABSMTC 09:18
PROVIDERS: ATTEND Anesthesiology
DX: Z01.812 Encounter for preprocedural laboratory examination (principal); Z20.822 Contact with and (suspected) exposure to COVID-19

== ENCOUNTER 2021-10-16 08:16 | Day surgery (SDC) | payer OTHER ==
[~2021-10-16] VITALS: Ht 177.8 cm; Wt 109.2 kg
[~2021-10-16 08:16] MED LIST changes: +NS 1,000 ML IV ONE
[2021-10-16] MEDS ORDERED: propofoL 200 MG/20 ML VIAL As Ordered ONE (09:38)
[2021-10-16] MEDS ORDERED: fentaNYL 100 MCG/2 ML INJECTION As Ordered ONE (09:38)
[2021-10-16] MEDS ORDERED: LIDOCAINE 2% INJ 100 MG/5 ML SYRINGE As Ordered ONE (09:38)
[2021-10-16 10:15] VITALS: BP 133/71
== END 2021-10-16 10:16 | disposition home or self-care (01) ==
LOC: M OPP 08:16
PROVIDERS: ATTEND Internal Medicine Gastroenterology
DX: K22.89 Other specified disease of esophagus (principal); K29.70 Gastritis, unspecified, without bleeding; K20.91 Esophagitis, unspecified with bleeding; K74.60 Unspecified cirrhosis of liver; K76.0 Fatty (change of) liver, not elsewhere classified; Z79.1 Long term (current) use of non-steroidal anti-inflammatories (NSAID); Z79.4 Long term (current) use of insulin; Z79.899 Other long term (current) drug therapy; Z88.0 Allergy status to penicillin; Z86.73 Personal history of transient ischemic attack (TIA), and cerebral infarction without residual deficits
CPT/HCPCS: 43239; 88305; J3010

== ENCOUNTER → 2022-02-05 | Outpatient (REF) | payer OTHER ==
[~2022-02-05] MED LIST changes: -NS 1,000 ML IV ONE
[2022-02-05 16:46] LABS: APPEARANCE, URINE MANUAL CLEAR (CLEAR); BILIRUBIN, URINE MANUAL NEGATIVE (NEGATIVE); COLOR, URINE MANUAL DK YELLOW (YELLOW); GLUCOSE, URINE (UA) MANUAL NEGATIVE (NEGATIVE); KETONE, URINE MANUAL NEGATIVE (NEGATIVE); NITRITE, URINE MANUAL NEGATIVE (NEGATIVE); PROTEIN, URINE MANUAL TRACE mg/dL (NEGATIVE); SPECIFIC GRAVITY,URINE MANUAL 1.025 (1.002-1.035); UROBILINOGEN, URINE MANUAL NORMAL (NORMAL)
[2022-02-05 16:47] LABS: BLOOD URINE MANUAL NEGATIVE (NEGATIVE); LEUKOCYTE ESTERASE, URINE MAN POSITIVE (NEGATIVE)
[2022-02-05 17:45] LABS: WBC, URINE 20-30 /hpf (0-3)
[2022-02-05 17:46] LABS: BACTERIA, URINE MOD AMOUNT; MUCUS, URINE LARGE AMOUNT (NEGATIVE); SQUAMOUS EPITHELIAL CELL URINE SMALL AMOUNT /hpf (SMALL AMT)
== END ==
LOC: M LAB REF 16:08
PROVIDERS: ATTEND Physician Assistant
DX: N39.0 Urinary tract infection, site not specified (principal)

== ENCOUNTER 2022-03-18 09:09 | Emergency (ER) | payer OTHER ==
[~2022-03-18] VITALS: Ht 177.8 cm; Wt 108.3 kg
[2022-03-18] MEDS ORDERED: METF10004 PO (09:22)
[2022-03-18 10:49] LABS: RSV AMPLIFICATION NEGATIVE (NEGATIVE)
[2022-03-18] MEDS ORDERED: ACETAMINOPHEN TAB 650MG DOSE (2X325MG) PO ONE (11:35)
[2022-03-18] MEDS ORDERED: ONDANSETRON 4MG ORAL DISINTEGRATING TAB PO ONE (11:35)
[2022-03-18 12:15] VITALS: BP 109/72
[2022-03-18] MEDS ORDERED: ONDA4TAB6 PO (12:29)
== END 2022-03-18 13:05 | disposition home or self-care (01) ==
LOC: M ED 09:09
DX: B34.8 Other viral infections of unspecified site (principal); I10 Essential (primary) hypertension; F43.10 Post-traumatic stress disorder, unspecified; K76.0 Fatty (change of) liver, not elsewhere classified; F41.9 Anxiety disorder, unspecified; E11.9 Type 2 diabetes mellitus without complications; Z90.79 Acquired absence of other genital organ(s); Z79.82 Long term (current) use of aspirin; Z79.4 Long term (current) use of insulin; Z79.811 Long term (current) use of aromatase inhibitors; Z79.899 Other long term (current) drug therapy; Z88.0 Allergy status to penicillin